=== PATIENT | male | born 1990 | race American Indian/Alaskan Native ===

== ENCOUNTER 2019-06-01 09:21 | Emergency (ER) | payer SELFPAY ==
[2019-06-01 09:32] VITALS: BP 110/70
--- NOTE | 2019-06-01 11:12 | Emergency Department Report ---
- General Chief complaint: Skin/Abscess/Foreign Body Stated complaint: PACKING REMOVED Time Seen by Provider: 06/01/19 10:00 Source: patient Mode of arrival: Ambulatory Limitations: No Limitations - History of Present Illness Initial comments: Patient presents for wound recheck status post I&D on Sunday. He reports compliance with antibiotic. He denies fever. Patient states the swelling is going down - Related Data Previous Rx's Medication Instructions Recorded Last Taken Type cephALEXin [Keflex] 500 mg PO Q8HR 7 Days #21 cap 05/30/19 Unknown Rx Allergies Allergy/AdvReac Type Severity Reaction Status Date / Time No Known Allergies Allergy Unverified 05/30/19 10:02 Abscess Boil HPI - HPI Chief Complaint: Skin/Abscess/Foreign Body Stated Complaint: PACKING REMOVED Time Seen by Provider: 06/01/19 10:00 Location: Other (right groin) Severity: Mild History: Yes Pain (mild), Yes Purulent Drainage, No Fever, No Numbness, No Foreign Body, No Insect Bite HPI: Pt presents for wound recheck and pain removal of right groin abscess Home Medications: Previous Rx's Medication Instructions Recorded Last Taken Type cephALEXin [Keflex] 500 mg PO Q8HR 7 Days #21 cap 05/30/19 Unknown Rx Allergies/Adverse Reactions: Allergies Allergy/AdvReac Type Severity Reaction Status Date / Time No Known Allergies Allergy Unverified 05/30/19 10:02 ED Review of Systems ROS: Stated complaint: PACKING REMOVED Other details as noted in HPI Comment: All other systems reviewed and negative Constitutional: denies: chills, fever Eyes: denies: eye pain ENT: denies: ear pain Respiratory: denies: cough Cardiovascular: denies: chest pain Gastrointestinal: denies: abdominal pain ED Past Medical Hx - Past Medical History Previous Medical History?: No - Surgical History Past Surgical History?: No - Social History Smoking Status: Never Smoker Substance Use Type: None - Medications Home Medications: Home Medications Medication Instructions Recorded Confirmed Last Taken Type cephALEXin [Keflex] 500 mg PO Q8HR 7 Days #21 cap 05/30/19 Unknown Rx ED Physical Exam - General Limitations: No Limitations General appearance: alert, in no apparent distress - Head Head exam: Present: atraumatic - Eye Eye exam: Present: normal appearance - ENT ENT exam: Present: normal exam - Neck Neck exam: Present: normal inspection - Respiratory Respiratory exam: Present: normal lung sounds bilaterally. Absent: respiratory distress, wheezes - Cardiovascular Cardiovascular Exam: Present: regular rate - GI/Abdominal GI/Abdominal exam: Present: soft - exam: Present: other (right groin abscess, small serosanguinos drainage, packing removed with ease, clean dry dressing applied) - Extremities Exam Extremities exam: Present: normal inspection - Neurological Exam Neurological exam: Present: alert, oriented X3 - Psychiatric Psychiatric exam: Present: normal affect - Skin Skin exam: Present: warm, intact, normal color ED Course Vital Signs 06/01/19 06/01/19 09:28 09:29 Temperature 99.1 F 97.5 F L Pulse Rate 91 H 91 H Respiratory 18 18 Rate Blood Pressure 110/70 Blood Pressure 132/94 [Right] O2 Sat by Pulse 98 100 Oximetry - Reevaluation(s) Reevaluation #1: 06/01/19 Packing removed pt tolerated well. Wound care instructions given. ED Medical Decision Making - Medical Decision Making 29-year-old male seen in this emergency room on [address] with a right groin abscess. I&D was performed at that time and patient was started on oral antibiotics. He presents today for wound recheck and packing removal. Right groin wound appears to be doing well patient reports decreased pain and decreased size. Packing removed with ease minimal serosanguinous drainage unable to express any additional drainage from the wound site. Patient instructed to wash area daily with soap and water and to apply clean dry dressing to the site. He is to follow-up with his primary care doctor in 3 to 5 days. Or return to this emergency room for any increasing swelling increasing drainage or fever or pain Critical Care Time: No Critical care attestation.: If time is entered above; I have spent that time in minutes in the direct care of this critically ill patient, excluding procedure time. ED Disposition Clinical Impression: Abscess re-check, Abscess of groin, right Disposition: TO HOME OR SELFCARE Is pt being admited?: No Does the pt Need Aspirin: No Condition: Stable Instructions: Abscess (ED) Additional Instructions: Complete your antibiotic as prescribed do warm compresses to the abscess site at least 2-3 times a day.wash site daily with antibacterial soap cover the area with clean dry dressing. Follow-up up with your doctor in 1 week. Return to the emergency room if you develop fever increasing swelling warmth or pain to the abscess site. Referrals: PRIMARY CARE, [Primary Care Provider] - 3-5 Days Time of Disposition: 11:06
== END 2019-06-01 11:12 | disposition home or self-care (01) ==
LOC: ED 09:21
DX: L02.214 Cutaneous abscess of groin (principal); Z48.02 Encounter for removal of sutures; Z79.899 Other long term (current) drug therapy
CPT/HCPCS: 99282